=== PATIENT | female | born 1940 | race Caucasian/White ===

== ENCOUNTER 2017-09-24 11:45 | Outpatient (CLI) | payer MEDICARE ==
--- NOTE | 2017-09-24 15:36 | PET ---
RADIONUCLIDE PET SCAN WITH CT ATTENUATION CORRECTION: HISTORY: Anal cell carcinoma. Initial staging. FINDINGS: Physiologic uptake of radiotracer is present throughout the enteric system and along each urinary tra ct. Markedly increased uptake at the low rectum, extending to the anus, in the region of the mass on the recent MRI. Maximum SUV is 13.7. The necrotic lymph node at the left inguinal lymph node shows a maximum SUV of 2.5. The subcentimete r lymph nodes of the pelvis, described on recent outside MRI, are not reliably demonstrated on the PE T images. A tiny focus of uptake, just anterior to the left iliac artery, at the level of the upper sacrum, is at the expected location of the left ureter. The nondiagnostic CT attenuation correction images show fusiform ectasia of the lower abdominal aorta. There is prominent calcification throughout the belen rial structures, including the coronary arteries. IMPRESSION: 1. 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 No other scintigraphic evid ence of metastatic disease. 2. Atherosclerosis. POS: SCHUYLER
== END 2017-09-24 11:46 | disposition home or self-care (01) ==
LOC: PET 11:45
PROVIDERS: ATTEND Radiology Radiation Oncology
DX: C21.0 Malignant neoplasm of anus, unspecified (principal); I70.90 Unspecified atherosclerosis
CPT/HCPCS: 78815; 80053; 82728; A9552; 36415

== ENCOUNTER 2017-12-03 19:40 | Emergency (ER) | payer MEDICARE ==
--- NOTE | 2017-12-03 21:13 | RAD ---
PA AND LATERAL VIEWS OF THE CHEST 12/03/17 HISTORY: Cough. Patient is finishing chemotherapy for anal cancer. FINDINGS: The heart size is normal. The aorta is tortuous. There is a right sided Port-A-Cath. The lungs are we ll expanded. Prominent interstitial markings. No lobar consolidation, pneumothoraces, or pleural effu sions are seen. IMPRESSION: No evidence of lobar pneumonia. POS: LANCE
[2017-12-03 21:37] LABS: Hemoglobin 7.4 g/dL (12.0-16.0); Red Blood Cell (RBC) Count 2.37 mill/uL (4.20-5.40); White Blood Cell (WBC) Count 1.9 thou/uL (4.8-10.8)
[2017-12-03 21:38] LABS: Mean Corpuscular HGB CONC 33.6 g/dL (32.0-36.0); Mean Corpuscular Volume 92.3 fL (78.0-98.0); Mean Platelet Volume 10.9 fL (7.4-10.4); Platelet Count 65 thou/uL (130-400); RBC Distribution Width 18.7 % (11.5-14.5)
[2017-12-03 21:39] LABS: Manual Diff?? YES
[2017-12-03 21:45] LABS: Band 6 % (5-11); Eosinophils 4 % (0-10); Lymphocytes 6 % (21-51); Monocytes 19 % (0-10); Neutrophil 65 % (42-75)
[2017-12-03 21:48] LABS: Large Platelets SLIGHT; PLT Morphology Comment Appears Decreased
[2017-12-03 21:49] LABS: Anisocytosis MODERATE=16-30 cells (100X) (0-5/hpf); Elliptocytes SLIGHT = 2-5 cells (100X) (0-1/hpf); Hypochromia SLIGHT = 6-15 cells (100X) (0-5/hpf); Microcytosis SLIGHT = 6-15 cells (100X) (0-5/hpf)
[2017-12-03 21:50] LABS: Macrocytosis SLIGHT = 6-15 cells (100X) (0-5/hpf); Polychromasia SLIGHT = 2-3 cells (100X) (0-2/hpf)
[2017-12-03 21:51] LABS: MDiff Complete? YES
[2017-12-03 21:55] LABS: ALT (SGPT) 20 U/L (8-55); AST (SGOT) 12 U/L (5-34); Albumin 3.3 g/dL (3.4-4.8); Alkaline Phosphatase 85 U/L (40-150); Anion Gap 12 mmol/L (10-20); BUN (Urea Nitrogen) 8 mg/dL (9.8-20.1); Bilirubin, Total 0.6 mg/dL (0.2-1.2); Calc. Creatinine Clearance 0 mL/min (70-130); Calcium 8.7 mg/dL (7.8-10.44); Carbon Dioxide 26 mmol/L (23-31); Chloride 101 mmol/L (98-107); Estimated GFR-MDRD 83; Globulin 2.7 g/dL (2.4-3.5); Glucose 89 mg/dL (83-110); Potassium 3.3 mmol/L (3.5-5.1); Sodium 136 mmol/L (136-145)
== END 2017-12-03 22:50 | disposition home or self-care (01) ==
LOC: SCSER 19:40
DX: J20.9 Acute bronchitis, unspecified (principal); D61.818 Other pancytopenia; I25.2 Old myocardial infarction; I10 Essential (primary) hypertension; Z79.899 Other long term (current) drug therapy; Z79.82 Long term (current) use of aspirin
CPT/HCPCS: 36415; 71046; 80053; 83605; 85025; 87040

== ENCOUNTER 2018-01-05 12:57 | Outpatient (CLI) | payer MEDICARE ==
--- NOTE | 2018-01-06 09:49 | PET ---
PET CT: HISTORY: A 77-year-old female with anal carcinoma status post chemoradiation therapy. Last chemotherapy was o n 11/07/2017 and last radiotherapy on 11/24/2017. The exam is requested for restaging. TECHNIQUE: PET scanning with CT attenuation correction is performed from the base of the brain to the proximal t highs following the intravenous administration of 10.6 mCi [id number] in the right sided Port-A-Cath. Imaging was performed after an uptake interval of 51 minutes. COMPARISON: PET CT dated 09/24/2017. FINDINGS: There is focal increased uptake in the region of the anus with an SUV of 5.7 (previously 13.7). Ther e is a new hypermetabolic 12 mm right inguinal lymph node with an SUV of 2.8. The previously noted h ypermetabolic left inguinal lymph node has resolved in the interim. No kurtis hypermetabolism is seen in the pelvis, abdomen, chest, axillae, or neck. No hypermetabolic pulmonary nodules, liver, adrenal, or skeletal lesions are seen. There is physiologic activity in the GI and tracts and the visualized portions of the brain. The CT scan used for attenuation correction demonstrates no evidence of pleural effusions or ascites. The 3.2 cm abdominal aortic aneurysm is stable. There is sigmoid diverticulosis. IMPRESSION: Mixed response to therapy since 09/24/2017. POS: SCHU[facility]ER
== END 2018-01-05 12:58 | disposition home or self-care (01) ==
LOC: PET 12:57
PROVIDERS: ATTEND Internal Medicine Hematology & Oncology
DX: C21.1 Malignant neoplasm of anal canal (principal)
CPT/HCPCS: 78815; A9552

== ENCOUNTER 2022-10-14 09:30 | Outpatient (CLI) | payer OTHER | END 2022-10-14 09:31 | disposition home or self-care (01) | LOC: PET 09:30 | PROVIDERS: ATTEND Internal Medicine Hematology & Oncology | DX: C21.1 Malignant neoplasm of anal canal (principal); R91.1 Solitary pulmonary nodule; C79.51 Secondary malignant neoplasm of bone; C78.7 Secondary malignant neoplasm of liver and intrahepatic bile duct; I71.40 Abdominal aortic aneurysm, without rupture, unspecified | CPT/HCPCS: 78815; A9552 ==

== ENCOUNTER 2022-11-07 07:40 | Outpatient (CLI) | payer OTHER | END 2022-11-07 07:41 | disposition home or self-care (01) | LOC: SCSMRI 07:40 | PROVIDERS: ATTEND Internal Medicine Hematology & Oncology | DX: M54.50 Low back pain, unspecified (principal); M25.551 Pain in right hip; C21.1 Malignant neoplasm of anal canal; C79.51 Secondary malignant neoplasm of bone; M89.9 Disorder of bone, unspecified; M48.061 Spinal stenosis, lumbar region without neurogenic claudication; M47.816 Spondylosis without myelopathy or radiculopathy, lumbar region | CPT/HCPCS: 72158 ==

== ENCOUNTER → 2022-11-13 | Day surgery (SDC) | payer OTHER ==
[~2022-11-13] MED LIST: Amlodipine 5 MG TAB PO SCH; Lidocaine 1% PF 5 ML VIAL ONE; Metoprolol Tartrate 25 MG TAB PO SCH; Sodium Bicarbonate 2.5 MEQ/5 ML VIAL ONE; hydrALAZINE 20 MG/ML VIAL ONE; hydrALAZINE 20 MG/ML VIAL SLOW IVP SCH
[2022-11-13 09:07] LABS: Prothrombin Time 13.3 sec (12.0-14.7)
[2022-11-13 09:08] LABS: PTT 41.2 sec (22.9-36.1)
[2022-11-13 12:51] VITALS: BP 144/68; TEMP 97.8
== END ==
LOC: CT 08:48
PROVIDERS: ATTEND Internal Medicine Hematology & Oncology
DX: C21.1 Malignant neoplasm of anal canal (principal); I27.20 Pulmonary hypertension, unspecified; I10 Essential (primary) hypertension; I25.10 Atherosclerotic heart disease of native coronary artery without angina pectoris; F17.200 Nicotine dependence, unspecified, uncomplicated; Z90.89 Acquired absence of other organs; Z79.899 Other long term (current) drug therapy
CPT/HCPCS: 47000; 77012; 85610; 85730; J0360

== ENCOUNTER → 2023-02-04 | Outpatient (CLI) | payer OTHER | LOC: PET 09:30 | PROVIDERS: ATTEND Internal Medicine Hematology & Oncology | DX: C21.1 Malignant neoplasm of anal canal (principal); C79.51 Secondary malignant neoplasm of bone; C78.7 Secondary malignant neoplasm of liver and intrahepatic bile duct | CPT/HCPCS: 78815; A9552 ==

== ENCOUNTER 2023-04-09 14:46 | Outpatient (CLI) | payer OTHER | END 2023-04-09 14:47 | disposition home or self-care (01) | LOC: BICRAD 14:46 | PROVIDERS: ATTEND Nurse Practitioner Adult Health | DX: C21.1 Malignant neoplasm of anal canal (principal); R91.8 Other nonspecific abnormal finding of lung field; J90 Pleural effusion, not elsewhere classified | CPT/HCPCS: 71046 ==

== ENCOUNTER 2023-05-19 08:45 | Outpatient (CLI) | payer OTHER | END 2023-05-19 08:46 | disposition home or self-care (01) | LOC: PET 08:45 | PROVIDERS: ATTEND Internal Medicine Hematology & Oncology | DX: C21.1 Malignant neoplasm of anal canal (principal); C79.51 Secondary malignant neoplasm of bone; C78.7 Secondary malignant neoplasm of liver and intrahepatic bile duct; M89.9 Disorder of bone, unspecified | CPT/HCPCS: 78815; A9552 ==

== ENCOUNTER 2023-07-17 12:30 | Outpatient (CLI) | payer OTHER | END 2023-07-17 12:31 | disposition home or self-care (01) | LOC: PET 12:30 | PROVIDERS: ATTEND Internal Medicine Hematology & Oncology | DX: C21.1 Malignant neoplasm of anal canal (principal); C79.51 Secondary malignant neoplasm of bone; C78.7 Secondary malignant neoplasm of liver and intrahepatic bile duct | CPT/HCPCS: 78815; A9552 ==